=== PATIENT | male | born 1940 ===

== ENCOUNTER 2017-10-19 11:00 | Inpatient (IN) | payer OTHER ==
[~2017-10-19] VITALS: Ht 175.3 cm; Wt 62.6 kg
[2017-10-26] MEDS ORDERED: VASOTEC10 MG PO (13:35)
[2017-10-26] MEDS ORDERED: CALAN SR120 MG PO (13:35)
[2017-10-26] MEDS ORDERED: PRILOSEC10 M2 PO (13:36)
[2017-10-26] MEDS ORDERED: ZANTAC300 MG PO (13:36)
[2017-10-26] MEDS ORDERED: TAMS0.4C PO (13:36)
[2017-11-03] MEDS ORDERED: INTESTINEX680 M1 PO (15:53)
[2017-11-03] MEDS ORDERED: OXYC1TAB9 PO (15:53)
== END 2017-11-03 17:58 | disposition home or self-care (01) | DRG 331 ==
LOC: O/R 10-31 06:20 → SURG 10-31 06:20 → SURH 10-31 10:15 → SURG 10-31 19:41
PROVIDERS: Surgery
PROC: 0DTP4ZZ Resection of Rectum, Percutaneous Endoscopic Approach (ICD-10-PCS; 2017-10-31)
PROC: 0DJD8ZZ Inspection of Lower Intestinal Tract, Via Natural or Artificial Opening Endoscopic (ICD-10-PCS; 2017-10-31)
PROC: 0DTN4ZZ Resection of Sigmoid Colon, Percutaneous Endoscopic Approach (ICD-10-PCS; principal; 2017-10-31 15:30)
DX: K57.32 Diverticulitis of large intestine without perforation or abscess without bleeding (principal)